=== PATIENT | male | born 1950 | race Caucasian/White ===

== ENCOUNTER → 2018-01-20 | Outpatient (CLI) | payer BC ==
[~2018-01-20] MED LIST: CARDITONE PO; FENO145T32 PO; GLIM2TAB2 PO; GLUC1TAB55 PO; HYDR12.53 PO; INSU100I32 SC; LOSA50TA7 PO; MULT-658 PO; SITA100T PO; TURM500C4 PO; VISION PO
== END | disposition home or self-care (01) ==
LOC: STAR 14:17
PROVIDERS: ATTEND Urology
DX: Z01.818 Encounter for other preprocedural examination (principal); R94.31 Abnormal electrocardiogram [ECG] [EKG]
CPT/HCPCS: 93005

== ENCOUNTER 2018-02-01 07:18 | Day surgery (SDC) | payer BC ==
[~2018-02-01] VITALS: Ht 193 cm; Wt 89.0 kg
[2018-02-01] MEDS ORDERED: LACTATED RINGERS 1,000 ML IV SCH (08:34)
[2018-02-01] MEDS ORDERED: CEFAZOLIN 1,000 MG ONE (10:10)
[2018-02-01] MEDS ORDERED: PROPOFOL 10 MG/ML, 50ML ONE (10:10)
[2018-02-01] MEDS ORDERED: FENTANYL PF 100 MCG/2ML ONE (10:11)
[2018-02-01] MEDS ORDERED: MIDAZOLAM 1 MG/ML, 2ML ONE (10:11)
[2018-02-01] MEDS ORDERED: OXYcodone 5 MG/5 ML ORAL.SOL UDC PO PRN (11:00)
[2018-02-01] MEDS ORDERED: ACETAMINOPHEN 325 MG TABLET PO PRN (11:00)
[2018-02-01] MEDS ORDERED: HYDROmorphone 1 MG/ML, 1ML IV PRN (11:00)
[2018-02-01] MEDS ORDERED: KETOROLAC 30 MG/1 ML IV PRN (11:00)
[2018-02-01] MEDS ORDERED: hydrALAzine 20 MG/ML, 1ML IV PRN (11:00)
[2018-02-01] MEDS ORDERED: LABETALOL 5MG/ML, 20ML IV PRN (11:00)
[2018-02-01] MEDS ORDERED: FENTANYL PF 100 MCG/2ML IV PRN (11:00)
== END 2018-02-01 15:05 | disposition home or self-care (01) ==
LOC: OUT 07:18
PROVIDERS: ATTEND Urology
DX: N40.1 Benign prostatic hyperplasia with lower urinary tract symptoms (principal); E11.9 Type 2 diabetes mellitus without complications; Z88.1 Allergy status to other antibiotic agents; Z88.0 Allergy status to penicillin; Z87.39 Personal history of other diseases of the musculoskeletal system and connective tissue; Z98.890 Other specified postprocedural states; Z90.49 Acquired absence of other specified parts of digestive tract
CPT/HCPCS: 52601; 82962; 88305; J0690; J2250; J2704; J3010; J7120